=== PATIENT | male | born 1970 | race Caucasian/White ===

== ENCOUNTER 2016-03-26 12:45 | Emergency (ER) | payer OTHER ==
[2016-03-26 12:56] VITALS: BP 103/72
[2016-03-26] MEDS ORDERED: HYDROcodone/ACETAMINOPHEN 1 EACH TABLET PO ONE (13:07)
[2016-03-26] MEDS ORDERED: NORMAL SALINE 1,000 ML IV PRN (13:07)
[2016-03-26] MEDS ORDERED: THIAMINE HCL 100 MG in NORMAL SALINE 50 ML IV ONE (13:07)
[2016-03-26 13:27] LABS: Hematocrit 35.9 % (42.0-52.0); Hemoglobin 12.4 gm/dL (13.5-18.0); Mean Cell Volume 88.2 fl (78-100); Mean Corpuscular Hemoglobin 30.5 pg (27-31); Mean Corpuscular Hgb Conc 34.5 g/dl (32-36); Mean Platelet Volume 9.5 fl (6.0-9.5); Neutrophil # 2.6 K/mm3 (1.3-6.0); Neutrophil % 47.5 % (42-75.0); Platelet Count 182 K/mm3 (150-450); Red Blood Count 4.07 M/mm3 (4.7-6.0); Red Cell Distribution Width 18.1 % (11.5-14.0); White Blood Count 5.5 K/mm3 (4.0-10.5)
[2016-03-26] MEDS ORDERED: PENICILLIN G POTASSIUM 2.5 MILLIONUNT in DEXTROSE 5 % IN WATER 100 ML IV ONE ×2 (13:30)
[2016-03-26 13:43] LABS: BUN/Creatinine Ratio 4.7 (9.0-21.6); Estimated Creat Clear 152.1
[2016-03-26 13:44] LABS: Albumin * 3.5 gm/dl (3.4-5.0); Anion Gap 13.7 mmol/L (6.8-13.8); Bilirubin Direct 0.1 mg/dL (0.0-0.3); Bilirubin, Total 0.2 mg/dL (0.0-1.1); Bilirubin,Indirect 0.1 mg/dL (0.1-0.7); Calcium * 8.3 mg/dL (7.9-10.9); Carbon Dioxide 27.2 mmol/L (24-32.6); Potassium 3.9 mmol/L (3.4-4.6); Total Protein 7.5 gm/dL (6.2-8.2)
--- NOTE | 2016-03-26 15:17 | ERNOTE ---
Abdominal HPI - Narrative Date of Service: 03/26/16 - General Chief Complaint: Fall Time Seen by Provider: 03/26/16 12:50 Source: patient Exam Limitations: clinical condition - Immun/Allergies/Home Medications Immunizatons: IMMUNIZATION HX Immunizations Up to Date No History of Influenza Vaccine No Hx Pneumococcal Vaccination No Allergies/Adverse Reactions: Allergies No Known Allergies Allergy (Verified 03/01/16 09:25) Home Medications: HOME MEDICATIONS NK [No Home Medication] 01/10/16 [Last Taken Unknown] - History of Present Illness Narrative: Chronic alcohol abuse. Brought to the [facility] ER today by EMS. The original story was that he was intoxicated and fell down stairs. It turns out that he simply slumped against a wall. In the ER, he was complaining of RLQ abdominal pain. He was a very poor vague historian. He also complained of right sided posterior dental pain. He agreed to evaluation and treatment in the ER, as he often leaves promptly after arriving here. Timing: unsure Quality: moderate Activities at Onset: other - drinking Associated Symptoms: Present: denies symptoms Prior Abdominal Problems: Present: similar symptoms Review of Systems - Review of Systems Constitutional: Present: malaise EYE: Present: no symptoms reported ENT: Present: other - dental pain Respiratory: Present: no symptoms reported Cardiology: Present: no symptoms reported Gastrointestinal/Abdominal: Present: See HPI Genitourinary: Present: no symptoms reported Musculoskeletal: Present: no symptoms reported Skin: Present: no symptoms reported Neurological: Present: no symptoms reported Endocrine: Present: no symptoms reported Hematologic/Lymphatic: Present: no symptoms reported Psych: Present: no symptoms reported All Other Systems: All systems neg except as marked - Patient's Past Medical History Patient History - Medical: Alcohol Abuse, Migraines, Seizures Patient History - Cardiac/Respiratory: No pertinent hx Patient History - Cancer: No Hx of Cancer Patient History - Surgical Procedures: No surgical history - Family History Brother Family History - Medical: , Alcohol Abuse Mother Family History - Medical: Family History - Cardiac/Respiratory: Aneurysm Father Family History - Medical: No pertinent hx - Social History Living Situations: home Does anyone smoke in the home?: Yes Smoking Status: Current every day smoker Have you smoked in the past 12 months: Yes Do you dip or chew tobacco: No Patient requests Smoking Cessation Consult: No Initiate information on Smoking Cessation: No Alcohol Use: heavy Drug Use: none Physical Exam - Physical Exam General Appearance: Present: lethargic, thin Eye Exam: Normal inspection: bilateral, PERRL: bilateral, EOMI: bilateral Ears, Nose, Throat: Present: normal ENT inspection, hearing grossly normal, other - carious teeth, especially right posterior Neck: Present: normal inspection Respiratory: Present: no respiratory distress, lungs clear, decreased breath sounds Cardiovascular/Chest: Present: regular rate, rhythm, no murmur Gastrointestinal/Abdominal: Present: normal bowel sounds, nondistended, soft, no organomegaly, tenderness - RLQ Back Exam: Present: normal inspection Extremity Exam: Present: normal inspection, no edema Neurological Exam: Present: disoriented to time. Absent: normal mood/affect Skin Exam: Present: normal color, warm/dry ED Progress - Results and Orders Patient's Lab Results:: I have reviewed the patient's lab results. - Vital Signs Patient's Vital Signs:: I have reviewed the patient's vital signs. Vital Signs: Vital Signs 03/26/16 03/26/16 03/26/16 12:47 12:56 12:57 Temperature 34.6 C L 34.6 C L Pulse Rate 76 75 74 Respiratory 15 17 Rate Blood Pressure 103/72 103/72 O2 Sat by Pulse 97 Oximetry - Progress/Reassessment Chief Complaint: Fall Progress:: Improved Progress Note-Subjective: 03/26/16 15:15 After beginning evaluation, and intiating some treatment, the patient decided he would not stay here any longer, and vigorously signed out against medical advice. Departure - Departure Clinical Impression: Alcohol abuse, Dental caries into pulp, RLQ abdominal pain, Non-compliance with treatment Alcohol intoxication Qualifiers: Complication of substance-induced condition: uncomplicated Qualified Code(s): F10.120 - Alcohol abuse with intoxication, uncomplicated Disposition: Against medical advice Condition: Undetermined Referrals: NONE,NONE [Primary Care Provider] -
== END 2016-03-26 15:09 | disposition left against medical advice (07) ==
LOC: ER 12:45
DX: R10.31 Right lower quadrant pain (principal); K02.9 Dental caries, unspecified; Z91.19 Patient's noncompliance with other medical treatment and regimen; F10.129 Alcohol abuse with intoxication, unspecified; F17.210 Nicotine dependence, cigarettes, uncomplicated
CPT/HCPCS: 36415; 80048; 80076; 82140; 82150; 83690; 85025; 87040; 99283; G0481

== ENCOUNTER 2016-06-20 15:13 | Emergency (ER) | payer OTHER ==
[2016-06-20] MEDS ORDERED: LORazepam 2 MG/ML DISP.SYRIN IV ONE (15:24)
[2016-06-20] MEDS ORDERED: LORazepam 2 MG/ML DISP.SYRIN ONE (15:29)
--- NOTE | 2016-06-20 15:39 | ERNOTE ---
Neuro HPI ER Record Date of Service: 06/20/16 Time Seen by Provider: 06/20/16 15:15 Immunizations: IMMUNIZATION HX Immunizations Up to Date Yes History of Influenza Vaccine No Hx Pneumococcal Vaccination No Allergies/Adverse Reactions: Allergies Allergy/AdvReac Type Severity Reaction Status Date / Time No Known Allergies Allergy Verified 06/20/16 15:20 Home Medications: HOME MEDICATIONS NK [No Home Medication] 01/10/16 [Last Taken Unknown] - History of Present Illness Narrative: Pt. comes in by EMS with c/o R side pain, B leg pain, and multiple seizures from last night and this morning in which she fell to the ground and hit his head. Pt. denies any headache, neck pain, head injury, SOB, CP, fever, NVD, abdominal pain, but pt. does state that his R lateral ribs were injured during his fall but he is unsure of how as he does not remember incident. Pt. does state that he had his last etoh just prior to the EMS arriving. Pt. is intoxicated at this time. Review of Systems - Review of Systems Constitutional: Present: no symptoms reported. Absent: recent illness, fever, chills, weakness, fatigue, malaise EYE: Present: no symptoms reported ENT: Present: no symptoms reported Respiratory: Present: no symptoms reported. Absent: shortness of breath, cough , wheezing Cardiology: Present: no symptoms reported. Absent: chest pain, edema Gastrointestinal/Abdominal: Present: no symptoms reported. Absent: nausea, vomiting, diarrhea Genitourinary: Present: no symptoms reported Musculoskeletal: Present: muscle pain - R lateral ribs. Absent: back pain, neck pain, joint pain Skin: Present: no symptoms reported. Absent: rash, change in color Neurological: Present: anxiety, seizure. Absent: depressed, headache, dizziness /light-headedness, weakness, numbness, tingling Psych: Present: anxiety All Other Systems: All systems neg except as marked - Patient's Past Medical History Patient History - Medical: Alcohol Abuse, Migraines, Seizures Patient History - Cardiac/Respiratory: No pertinent hx Patient History - Cancer: No Hx of Cancer Patient History - Surgical Procedures: No surgical history Patient History - Other: None - Family History Brother Family History - Medical: , Alcohol Abuse Mother Family History - Medical: Family History - Cardiac/Respiratory: Aneurysm Father Family History - Medical: No pertinent hx - Social History Living Situations: home Abuse History: No History of abuse Psych History: No pertinent hx Does anyone smoke in the home?: Yes Smoking Status: Current every day smoker Have you smoked in the past 12 months: Yes Alcohol Use: heavy Drug Use: none - Immunizations Immunizations Up to Date: Yes Hx Pneumococcal Vaccination: No History of Influenza Vaccine: No Physical Exam - Physical Exam General Appearance: Present: wd/wn, alert, no apparent distress Eye Exam: Normal inspection: bilateral, PERRL: bilateral, EOMI: bilateral Ears, Nose, Throat: Present: normal ENT inspection, normal pharynx Neck: Present: normal inspection, nontender. Absent: lymphadenopathy (R), lymphadenopathy (L) Respiratory: Present: no respiratory distress, normal breath sounds, no accessory muscle use, lungs clear, chest tenderness - R lateral rib tenderness. Absent: crackles, rales, rhonchi, stridor, wheezing Cardiovascular/Chest: Present: regular rate, rhythm, no murmur, normal peripheral pulses Gastrointestinal/Abdominal: Present: normal bowel sounds, nontender, nondistended, soft, no organomegaly Back Exam: Present: normal inspection, normal range of motion, no CVA tenderness , no vertebral tenderness Extremity Exam: Present: normal inspection, non-tender, normal range of motion, no edema Neurological Exam: Present: alert, oriented, normal mood/affect, no motor/ sensory deficits Skin Exam: Present: normal color, warm/dry. Absent: pallor, skin rash [place] Coma Scale - Assess Eye Opening: Spontaneous Motor: Obeys Commands Verbal: Oriented - Total Coma Scale Total: 15 Initial Stroke Assessment - Date/Time of assessment Stroke Scale Date: 06/20/16 Stroke Scale Time: 15:37 - NIH Stroke Scale Level of Consciousness: Alert LOC Questions (Year and Age): Answers both correctly LOC Commands (open/close eyes/fist): Performs both correctly Lateral Gaze Paresis: None Visual Field Loss: No visual loss Facial Palsy: Normal movement Right Arm Motor (10 sec hold): No drift Left Arm Motor (10 sec hold): No drift Right Leg Motor (5 sec hold): No drift Left Leg Motor (5 sec hold): No drift Limb Ataxia (finger/nose heel/morse): Untestable If present, ataxia in:: Right arm, Left arm, Right leg, Left leg Sensory Loss (pinprick arms/legs/face): No sensory loss Language Aphasia (description/naming/reading): No aphasia; normal Dysarthria (speech clarity): Slurring, intelligeble Neglect Inattention (visual/tactile/auditory/spatial/person): No neglect Initial Stroke Scale Score:: 1 ED Progress - Date and Time Seen: Date and Time: 06/20/16 17:07 Pt. is clearly intoxicated and unable to go home at this time. Pt. is prescribed medications for seizures but is unwilling to take them per pt. Discussed with Dr Martinez and she feels that it is safe to send pt. home when he is able to walk and care for himself. 06/20/16 19:49 Pt. left the ER when this provider was in another pt. room. Pt. still has heplock in place. bonding supervisor noted, will call [facility] to find pt. - Results and Orders Patient's Lab Results:: I have reviewed the patient's lab results. - Vital Signs Patient's Vital Signs:: I have reviewed the patient's vital signs. Vital Signs: Vital Signs 06/20/16 15:13 Temperature 37.0 C Pulse Rate 92 Respiratory 16 Rate Blood Pressure 133/88 O2 Sat by Pulse 97 Oximetry - X-Ray X-Ray #1 X-Ray: ribs Interpretation: Reviewed by me X-ray Comments: no acute - CT/Ultrasound CT/Ultrasound Narrative: CT head without any acute intracranial process. - Progress/Reassessment Chief Complaint: Seizure Activity Departure Clinical Impression: Alcohol abuse - Departure Disposition: Against medical advice
[2016-06-20 15:42] LABS: Hematocrit 38.4 % (42.0-52.0); Hemoglobin 13.7 gm/dL (13.5-18.0); Mean Cell Volume 86.1 fl (78-100); Mean Corpuscular Hemoglobin 30.7 pg (27-31); Mean Corpuscular Hgb Conc 35.7 g/dl (32-36); Mean Platelet Volume 9.6 fl (6.0-9.5); Neutrophil # 5.3 K/mm3 (1.3-6.0); Neutrophil % 54.6 % (42-75.0); Platelet Count 214 K/mm3 (150-450); Red Blood Count 4.46 M/mm3 (4.7-6.0); Red Cell Distribution Width 15.9 % (11.5-14.0); White Blood Count 9.7 K/mm3 (4.0-10.5)
--- OUTSIDE RECORDS SUMMARY | 2016-06-20 15:50 | XMS REPORT | Continuity of Care Document ---
:1970 Author Organization [employer] [place] [address] Care Team Providers Name Role Phone Unavailable Primary Care Provider Unavailable Source Comments This disclosure is being made pursuant to the [employer] program and maynot contain all information available regarding this patient.[employer] Active Allergies and Adverse Reactions Not on File Current Medications Be aware that medications may not be up to date as of this document. Alwaysverify current medications with the patient. Not on file Active Problems Not on file Social History Tobacco Use Types Packs/Day Years Used Date Never Assessed Plan of Care Health Maintenance Due Date Last Done Comments Retired-Pertussis Vaccine Adult 06/11/1990 Retired-Tetanus Vaccine Adult 06/11/1990 Retired-INFLUENZA VACCINE 11/03/2014 Results from Last 3 Months Not on file
[2016-06-20 16:01] LABS: Albumin * 4.1 gm/dl (3.4-5.0); BUN/Creatinine Ratio 9.1 (9.0-21.6); Bilirubin, Total 0.2 mg/dL (0.0-1.1); Ca. Corrected For Albumin 8.5 mg/dL (8.4-10.2); Calcium * 8.9 mg/dL (7.9-10.9); Carbon Dioxide 25.9 mmol/L (24-32.6); Potassium 3.9 mmol/L (3.4-4.6); Total Protein 8.7 gm/dL (6.2-8.2)
[2016-06-20] MEDS ORDERED: MULTIVIT INFUSN,ADULT 4,VIT K 10 ML, THIAMINE HCL 100 MG in NORMAL SALINE 1,000 ML IV SCH (16:30)
[2016-06-20 22:25] VITALS: BP 111/77
== END 2016-06-20 20:00 | disposition left against medical advice (07) ==
LOC: ER 15:13
DX: F10.129 Alcohol abuse with intoxication, unspecified (principal); R07.81 Pleurodynia; M79.605 Pain in left leg; M79.604 Pain in right leg; S09.90XA Unspecified injury of head, initial encounter; F17.200 Nicotine dependence, unspecified, uncomplicated; W19.XXXA Unspecified fall, initial encounter
CPT/HCPCS: 36415; 70450; 71100; 80053; 85025; 96374; 96375; 99284; G0481

== ENCOUNTER 2016-07-17 12:54 | Emergency (ER) | payer OTHER ==
--- NOTE | 2016-07-17 13:53 | ERNOTE ---
ENT HPI Date of Service: 07/17/16 Time Seen by Provider: 07/17/16 13:52 Source: patient Exam Limitations: no limitations - Immun/Allergies/Home Medications Immunizations: IMMUNIZATION HX Immunizations Up to Date Yes History of Influenza Vaccine No Hx Pneumococcal Vaccination No Allergies/Adverse Reactions: Allergies Allergy/AdvReac Type Severity Reaction Status Date / Time No Known Allergies Allergy Verified 07/17/16 13:27 Home Medications: HOME MEDICATIONS Meloxicam [Mobic] 15 mg PO DAILY #30 tab 07/17/16 [Last Taken Unknown] Penicillin V Potassium [Pen-Vee K] 500 mg PO QID #40 tab 07/17/16 [Last Taken Unknown] - History of Present Illness Narrative: C/O OF RIGHT UPPER AND LOWER TOOTH PAIN AFTER BITING ON [employer]. NO FACIAL SWELLING AT PRESENT. HE STATES HE HAS NO DENTIST. NKA. HE STATES HIS SISTER TOLD HIM HE COULD COME HERE AND GET SOME TRAMADOL. Review of Systems - Review of Systems Constitutional: Present: See HPI ENT: Present: See HPI, other - DENTAL PAIN . All Other Systems: All systems neg except as marked - Patient's Past Medical History Patient History - Medical: Alcohol Abuse, Migraines, Seizures Patient History - Cardiac/Respiratory: No pertinent hx Patient History - Cancer: No Hx of Cancer Patient History - Surgical Procedures: No surgical history Patient History - Other: None - Family History Brother Family History - Medical: , Alcohol Abuse Mother Family History - Medical: Family History - Cardiac/Respiratory: Aneurysm Father Family History - Medical: No pertinent hx - Social History Living Situations: home Abuse History: No History of abuse Psych History: No pertinent hx Does anyone smoke in the home?: Yes Alcohol Use: heavy Drug Use: none - Immunizations Immunizations Up to Date: Yes Hx Pneumococcal Vaccination: No History of Influenza Vaccine: No Physical Exam - Physical Exam General Appearance: Present: wd/wn, alert, no apparent distress Ears, Nose, Throat: Present: normal except -, other - C/O OF UPPER AND LOWER, RIGHT TOOTH PAIN WITH NO SIGN OF ACUTE SWELLING OR FRACTURE THOUGH HE HAS SIGN OF MULTIPLE CHRONIC CARIES ON RIGHT AND LEFT , UPPER AND LOWER WITH VERY CARIOUS RIGHT LOWER 3RD MOLAR THAT IS NOT A SOURCE OF HIS COMPLAINT. THERE IS NO JAW OR SOFT TISSUE FACIAL SWELLING. Neck: Present: normal inspection, nontender ED Progress - Vital Signs Patient's Vital Signs:: I have reviewed the patient's vital signs. Vital Signs: Vital Signs 07/17/16 13:23 Temperature 36.9 C Pulse Rate 115 H Respiratory 12 Rate Blood Pressure 136/87 O2 Sat by Pulse 95 Oximetry - Progress/Reassessment Chief Complaint: Dental Problem Departure Clinical Impression: Pain due to dental caries - Departure Disposition: Home Follow Up Needed Condition: Good Instructions: Dental Caries Additional Instructions: You need to follow up with the dental clinic for definitive treatment of your dental problems. . We have given you information about the walk in dental clinic . Contact them today . In the meantime I have started you on penicillin and meloxicam. Avoid food and drink that is hot and cold. Rinse your mouth with warm salt water for 10 mins every 3-4 hours. You can also try topical ambusol or oil of cloves. Referrals: NONE,NONE [Primary Care Provider] - Prescriptions: Meloxicam [Mobic] 15 mg PO DAILY #30 tab Penicillin V Potassium [Pen-Vee K] 500 mg PO QID #40 tab
--- OUTSIDE RECORDS SUMMARY | 2016-07-17 14:24 | XMS REPORT | Continuity of Care Document ---
:1970 Author Organization [employer] [place] [address] Care Team Providers Name Role Phone Unavailable Primary Care Provider Unavailable Source Comments This disclosure is being made pursuant to the [employer] program and maynot contain all information available regarding this patient.[employer] Active Allergies and Adverse Reactions Not on [...]
[2016-07-17 14:25] VITALS: BP 134/83
== END 2016-07-17 14:17 | disposition home or self-care (01) ==
LOC: ER 12:54
DX: K02.9 Dental caries, unspecified (principal)

== ENCOUNTER 2016-08-07 17:34 | Emergency (ER) | payer OTHER ==
[2016-08-07 17:54] LABS: Hematocrit 36.1 % (42.0-52.0); Mean Cell Volume 85.3 fl (78-100); Mean Corpuscular Hemoglobin 30.7 pg (27-31); Mean Platelet Volume 9.1 fl (6.0-9.5); Neutrophil # 3.3 K/mm3 (1.3-6.0); Neutrophil % 46.3 % (42-75.0); Platelet Count 278 K/mm3 (150-450); Red Blood Count 4.23 M/mm3 (4.7-6.0); Red Cell Distribution Width 17.1 % (11.5-14.0); White Blood Count 7.1 K/mm3 (4.0-10.5)
[2016-08-07] MEDS ORDERED: MULTIVIT INFUSN,ADULT 4,VIT K 10 ML, THIAMINE HCL 100 MG in DEXTROSE 5 % IN WATER 1,000 ML IV SCH ×3 (18:00)
[2016-08-07 18:10] LABS: Albumin * 3.9 gm/dl (3.4-5.0); BUN/Creatinine Ratio 10.4 (9.0-21.6); Bilirubin, Total 0.2 mg/dL (0.0-1.1); Ca. Corrected For Albumin 8.9 mg/dL (8.4-10.2); Calcium * 9.1 mg/dL (7.9-10.9); Total Protein 7.9 gm/dL (6.2-8.2)
--- OUTSIDE RECORDS SUMMARY | 2016-08-07 18:12 | XMS REPORT | Continuity of Care Document ---
:1970 Author Organization [employer] [place] [address] Care Team Providers Name Role Phone Unavailable Primary Care Provider Unavailable Source Comments This disclosure is being made pursuant to the [employer] program and maynot contain all information available regarding this patient.[employer] Active Allergies and Adverse Reactions Not on [...]
[2016-08-07 18:29] LABS: Urine Bilirubin Negative (NEGATIVE); Urine Blood Negative /ul (NEGATIVE); Urine Ketone Negative (NEGATIVE); Urine Nitrite Negative (NEGATIVE); Urine Protein Negative (NEGATIVE); Urine Specific Gravity <=1.005 SP.GR. (1.005-1.030); Urine Urobilinogen Normal (NORMAL)
--- NOTE | 2016-08-07 18:30 | ERNOTE ---
Abdominal HPI - General Chief Complaint: Abdominal Pain Time Seen by Provider: 08/07/16 17:59 Source: patient Exam Limitations: no limitations - Immun/Allergies/Home Medications Immunizatons: IMMUNIZATION HX Immunizations Up to Date Yes History of Influenza Vaccine No Hx Pneumococcal Vaccination No Allergies/Adverse Reactions: Allergies tramadol Adverse Reaction (Mild, Verified 08/07/16 17:39) Vomiting Home Medications: HOME MEDICATIONS NK [No Home Medication] 08/07/16 [Last Taken Unknown] - History of Present Illness Narrative: pt is a known alcoholic who comes in for right upper quadrant abd pain for 24 hours. He states that self medicating with alcohol has not helped Review of Systems - Review of Systems Constitutional: Present: no symptoms reported EYE: Present: no symptoms reported ENT: Present: no symptoms reported Respiratory: Present: no symptoms reported Cardiology: Present: no symptoms reported Gastrointestinal/Abdominal: Present: See HPI Genitourinary: Present: no symptoms reported Musculoskeletal: Present: no symptoms reported Skin: Present: no symptoms reported - Patient's Past Medical History Patient History - Medical: Alcohol Abuse, Migraines, Seizures Patient History - Cardiac/Respiratory: No pertinent hx Patient History - Cancer: No Hx of Cancer Patient History - Surgical Procedures: Other Patient History - Other: None - Family History Brother Family History - Medical: , Alcohol Abuse Mother Family History - Medical: Family History - Cardiac/Respiratory: Aneurysm Father Family History - Medical: No pertinent hx - Social History Living Situations: home Abuse History: No History of abuse Psych History: No pertinent hx Does anyone smoke in the home?: Yes Smoking Status: Current every day smoker Have you smoked in the past 12 months: Yes Alcohol Use: heavy Drug Use: none - Immunizations Immunizations Up to Date: Yes Hx Pneumococcal Vaccination: No History of Influenza Vaccine: No Physical Exam - Physical Exam General Appearance: Present: wd/wn, alert, no apparent distress Eye Exam: Other: right - pt does have mild scleral icterus bilaterally Ears, Nose, Throat: Present: normal ENT inspection Respiratory: Present: no respiratory distress, normal breath sounds, no accessory muscle use, chest nontender, lungs clear Cardiovascular/Chest: Present: regular rate, rhythm, no murmur, normal peripheral pulses Gastrointestinal/Abdominal: Present: other - patient's examination of the abdomen reveals tenderness in the right upper quadrant of the abdomen he is thin I do not feel any masses there is no rebound examination does not reveal this belly to be an acute abdomen ED Progress - Vital Signs Vital Signs: Vital Signs 08/07/16 08/07/16 08/07/16 17:35 17:58 18:20 Temperature 36.9 C 36.8 C Pulse Rate 91 93 78 Respiratory 14 14 14 Rate Blood Pressure 122/83 118/79 121/79 O2 Sat by Pulse 93 95 94 Oximetry - Progress/Reassessment Chief Complaint: Abdominal Pain Plan - Plan Plan: Patient has acute alcoholic intoxication his blood alcohol level is 385. His pain is most probably hepatic as he had elevation of the liver enzymes. Like to give the patient a banana bag and proceed with getting an ultrasound of the bladder. However the patient signed out AGAINST MEDICAL ADVICE. Departure - Departure Clinical Impression: Alcohol intoxication Qualifiers: Complication of substance-induced condition: with unspecified complication Qualified Code(s): F10.929 - Alcohol use, unspecified with intoxication, unspecified Disposition: Against medical advice Condition: Undetermined
[2016-08-07 18:37] LABS: Urine Appearance Clear; Urine Bacteria TRACE; Urine Color Yellow; Urine RBC None Seen /hpf (0-5); Urine WBC None Seen /hpf (0-5)
[2016-08-07 18:44] LABS: Cocaine Ur Negative (NEGATIVE); Urine Barbiturate Negative (NEGATIVE); Urine Benzodiazepines Negative (NEGATIVE); Urine Opiates Negative (NEGATIVE); Urine PCP Negative (NEGATIVE); Urine THC Negative (NEGATIVE)
[2016-08-07 19:46] VITALS: BP 128/78
== END 2016-08-07 19:27 | disposition left against medical advice (07) ==
LOC: ER 17:34
DX: F10.929 Alcohol use, unspecified with intoxication, unspecified (principal); Z72.0 Tobacco use; Z53.29 Procedure and treatment not carried out because of patient's decision for other reasons
CPT/HCPCS: 36415; 80053; 80307; 81001; 82140; 82150; 83690; 85025; 96365; 99284; G0481

== ENCOUNTER 2016-09-13 15:05 | Emergency (ER) | payer OTHER ==
--- NOTE | 2016-09-13 15:35 | ERNOTE ---
Abdominal HPI - General Chief Complaint: Abdominal Pain Time Seen by Provider: 09/13/16 15:26 Source: patient Exam Limitations: intoxication - Immun/Allergies/Home Medications Immunizatons: IMMUNIZATION HX Immunizations Up to Date No History of Influenza Vaccine No Hx Pneumococcal Vaccination No Allergies/Adverse Reactions: Allergies tramadol Adverse Reaction (Mild, Verified 09/13/16 15:12) Vomiting Home Medications: HOME MEDICATIONS NK [No Home Medication] 09/13/16 [Last Taken Unknown] - History of Present Illness Narrative: Patient is here for abdominal pain that he has had for a few months. He was seen at [facility] at some point and had an ultrasound that showed gallstones. It is unclear why he did not follow up. He was seen in the Er again a couple of weeks ago for abdominal pain, was told to follow up but 'they did not answer the phone ' He has a history of ETOH abuse, states that he slowed down for a few months, but has been drinking more recently again 'as it helps the pain', can't tell how much he has been drinking or when the pain started today. Review of Systems - Review of Systems Constitutional: Absent: recent illness, fever Respiratory: Absent: shortness of breath Cardiology: Absent: chest pain Gastrointestinal/Abdominal: Present: See HPI. Absent: nausea, vomiting, diarrhea Genitourinary: Present: no symptoms reported Skin: Absent: rash Neurological: Absent: headache - Patient's Past Medical History Patient History - Medical: Alcohol Abuse, Migraines, Seizures Patient History - Cardiac/Respiratory: No pertinent hx Patient History - Cancer: No Hx of Cancer Patient History - Surgical Procedures: Other Patient History - Other: None - Family History Brother Family History - Medical: , Alcohol Abuse Mother Family History - Medical: Family History - Cardiac/Respiratory: Aneurysm Father Family History - Medical: No pertinent hx - Social History Living Situations: home Abuse History: No History of abuse Psych History: No pertinent hx Does anyone smoke in the home?: Yes Smoking Status: Current every day smoker Alcohol Use: heavy Drug Use: none - Immunizations Immunizations Up to Date: No Hx Pneumococcal Vaccination: No History of Influenza Vaccine: No Physical Exam - Physical Exam General Appearance: Present: wd/wn, alert, no apparent distress, other - intoxicated but alert and oriented Respiratory: Present: no respiratory distress, no accessory muscle use, lungs clear, decreased breath sounds Cardiovascular/Chest: Present: regular rate, rhythm, no murmur Gastrointestinal/Abdominal: Present: normal bowel sounds, nondistended, soft, tenderness - RUQ. Absent: guarding, rebound Neurological Exam: Present: alert, oriented Skin Exam: Present: normal color, warm/dry ED Progress - Results and Orders Patient's Lab Results:: I have reviewed the patient's lab results. - Vital Signs Patient's Vital Signs:: I have reviewed the patient's vital signs. Vital Signs: Vital Signs 09/13/16 15:06 Temperature 36.5 C Pulse Rate 90 Respiratory 18 Rate Blood Pressure 109/75 O2 Sat by Pulse 97 Oximetry - CT/Ultrasound CT/Ultrasound Narrative: abdominal u/s: no acute cholecystitis - Progress/Reassessment Chief Complaint: Abdominal Pain Progress Note-Subjective: 09/13/16 17:26 discussed results of ultrasound and need to follow up, has appointment on December 06, discussed that most pain medication are contraindicated as long as he is drinking alcohol Departure - Departure Clinical Impression: Alcohol abuse Abdominal pain Qualifiers: Abdominal location: right upper quadrant Qualified Code(s): R10.11 - Right upper quadrant pain Disposition: Home self-care Condition: Good Instructions: Abdominal Pain, Adult, [id number] Additional Instructions: call back during business hours and our director of casework services might be able to get you an earlier follow up appointment than December Referrals: Giovanny Becker DO [Staff Physician] -
--- OUTSIDE RECORDS SUMMARY | 2016-09-13 15:37 | XMS REPORT | Continuity of Care Document ---
:1970 Author Organization [employer] [place] [address] Care Team Providers Name Role Phone Unavailable Primary Care Provider Unavailable Source Comments This disclosure is being made pursuant to the [employer] program and maynot contain all information available regarding this patient.[employer] Active Allergies and Adverse Reactions Not on [...]
[2016-09-13 15:47] LABS: Hematocrit 33.3 % (42.0-52.0); Hemoglobin 11.5 gm/dL (13.5-18.0); Mean Corpuscular Hemoglobin 30.7 pg (27-31); Mean Corpuscular Hgb Conc 34.5 g/dl (32-36); Mean Platelet Volume 9.9 fl (6.0-9.5); Neutrophil # 5.5 K/mm3 (1.3-6.0); Neutrophil % 66.1 % (42-75.0); Platelet Count 232 K/mm3 (150-450); Red Blood Count 3.74 M/mm3 (4.7-6.0); Red Cell Distribution Width 16.7 % (11.5-14.0); White Blood Count 8.3 K/mm3 (4.0-10.5)
[2016-09-13 15:59] LABS: Albumin * 3.6 gm/dl (3.4-5.0); Anion Gap 12.7 mmol/L (6.8-13.8); BUN/Creatinine Ratio 4.3 (9.0-21.6); Bilirubin, Total 0.2 mg/dL (0.0-1.1); Ca. Corrected For Albumin 8.5 mg/dL (8.4-10.2); Calcium * 8.5 mg/dL (7.9-10.9); Carbon Dioxide 25.7 mmol/L (24-32.6); Potassium 3.4 mmol/L (3.4-4.6); Total Protein 7.5 gm/dL (6.2-8.2)
[2016-09-13 17:53] VITALS: BP 116/84
== END 2016-09-13 17:53 | disposition home or self-care (01) ==
LOC: ER 15:05
DX: F10.10 Alcohol abuse, uncomplicated (principal); R10.11 Right upper quadrant pain; F17.200 Nicotine dependence, unspecified, uncomplicated

== ENCOUNTER 2016-10-30 18:50 | Emergency (ER) | payer OTHER ==
[2016-10-30] MEDS ORDERED: NORMAL SALINE 1,000 ML IV ONE (19:14)
[2016-10-30] MEDS ORDERED: PROMETHAZINE HCL 25 MG in DEXTROSE 5 % IN WATER 50 ML IV ONE ×2 (19:14)
[2016-10-30 19:30] LABS: Hematocrit 42.7 % (42.0-52.0); Hemoglobin 14.5 gm/dL (13.5-18.0); Mean Cell Volume 89.5 fl (78-100); Mean Corpuscular Hemoglobin 30.4 pg (27-31); Mean Platelet Volume 9.9 fl (6.0-9.5); Neutrophil # 1.5 K/mm3 (1.3-6.0); Neutrophil % 31.1 % (42-75.0); Platelet Count 210 K/mm3 (150-450); Red Blood Count 4.77 M/mm3 (4.7-6.0); Red Cell Distribution Width 18.1 % (11.5-14.0); White Blood Count 4.7 K/mm3 (4.0-10.5)
--- NOTE | 2016-10-30 19:40 | ERNOTE ---
GI Bleeding/Rectal Pain ER Date of Service: 10/30/16 Presenting Symptoms: vomiting blood Time Seen by Provider: 10/30/16 19:10 Source: patient Exam Limitations: no limitations Immunizations: IMMUNIZATION HX Immunizations Up to Date No History of Influenza Vaccine No Hx Pneumococcal Vaccination No Allergies/Adverse Reactions: Allergies tramadol Adverse Reaction (Mild, Verified 10/30/16 18:54) Vomiting Home Medications: HOME MEDICATIONS Omeprazole [Prilosec] 20 mg PO DAILY #30 cap 10/30/16 [Last Taken Unknown] Narrative: Pt. comes in with c/o vomiting blood three times today starting at unknown time. Pt. states that he has been drinking ETOH today so he is unsure of when it started and that it is purple in color. Pt. denies any SOB, CP, diarrhea or bloody stools. Pt. states that he has been dizzy and nauseated but the beer alleviated that. Review of Systems - Review of Systems Constitutional: Present: weakness, fatigue. Absent: recent illness, fever, chills EYE: Present: no symptoms reported ENT: Present: no symptoms reported Respiratory: Present: no symptoms reported. Absent: shortness of breath, cough , wheezing Cardiology: Present: no symptoms reported. Absent: chest pain, palpitations, edema Gastrointestinal/Abdominal: Present: nausea, vomiting, abdominal pain. Absent: diarrhea Genitourinary: Present: no symptoms reported. Absent: frequency, decreased urinary output Musculoskeletal: Present: no symptoms reported. Absent: back pain, joint pain Skin: Present: no symptoms reported Neurological: Present: dizziness/light-headedness. Absent: weakness, numbness, tingling All Other Systems: All systems neg except as marked - Patient's Past Medical History Patient History - Medical: Alcohol Abuse, Migraines, Seizures Patient History - Cardiac/Respiratory: No pertinent hx Patient History - Cancer: No Hx of Cancer Patient History - Surgical Procedures: Other Patient History - Other: None - Family History Brother Family History - Medical: , Alcohol Abuse Mother Family History - Medical: Family History - Cardiac/Respiratory: Aneurysm Father Family History - Medical: No pertinent hx - Social History Living Situations: home Abuse History: Hx of Substance Use Psych History: No pertinent hx Does anyone smoke in the home?: Yes Smoking Status: Current every day smoker Have you smoked in the past 12 months: Yes Do you dip or chew tobacco: No Patient requests Smoking Cessation Consult: No Initiate information on Smoking Cessation: No Alcohol Use: heavy Drug Use: none - Immunizations Immunizations Up to Date: No Hx Pneumococcal Vaccination: No History of Influenza Vaccine: No Physical Exam - Physical Exam General Appearance: Present: alert, no apparent distress, cachetic Head Exam: Present: normal inspection, no evidence of injury Eye Exam: Normal inspection: bilateral, EOMI: bilateral, Abnormal pupil: bilateral - sluggish, Sclera injection: bilateral, Scleral icterus: bilateral Ears, Nose, Throat: Present: normal ENT inspection, normal pharynx Neck: Present: normal inspection, nontender. Absent: lymphadenopathy (R), lymphadenopathy (L) Respiratory: Present: no respiratory distress, normal breath sounds, no accessory muscle use, chest nontender, lungs clear Cardiovascular/Chest: Present: regular rate, rhythm, no murmur, normal peripheral pulses Gastrointestinal/Abdominal: Present: normal bowel sounds, nondistended, tenderness - LUQ , other - flat. Absent: rebound, Byrd sign, Psoas sign, mass , hernia Back Exam: Present: normal inspection, normal range of motion, no CVA tenderness , no vertebral tenderness Extremity Exam: Present: normal inspection, non-tender, normal range of motion, no edema Neurological Exam: Present: alert, oriented, normal mood/affect, no motor/ sensory deficits, other - enebriated Skin Exam: Present: cool/dry, jaundice ED Progress - Date and Time Seen: Date and Time: 10/30/16 21:22 Pt. refusing stool sample and rectal exam as pt. is not vomiting here and is not anemic and his pain decreased with GI cocktail feels that pt. needs PPI for likely peptic ulcer secondary to ETOH abuse. - Results and Orders Patient's Lab Results:: I have reviewed the patient's lab results. - Vital Signs Patient's Vital Signs:: I have reviewed the patient's vital signs. Vital Signs: Vital Signs 10/30/16 18:54 Temperature 36.0 C L Pulse Rate 107 H Respiratory 20 Rate Blood Pressure 115/88 O2 Sat by Pulse 99 Oximetry - X-Ray X-Ray #1 X-Ray: abdomen Interpretation: Reviewed by me X-ray Comments: non obstructive bowel gas pattern prominent rugal folds in abdomen - Progress/Reassessment Chief Complaint: GI Bleed Departure Clinical Impression: Alcohol abuse Gastritis Qualifiers: Gastritis type: alcoholic Chronicity: acute Gastritis bleeding: with bleeding Qualified Code(s): K29.21 - Alcoholic gastritis with bleeding - Departure Disposition: Home self-care Condition: Good Instructions: Gastritis, Adult, [id number] Additional Instructions: Please follow up with primary provider and return to ER if you vomit any more Prescriptions: Omeprazole [Prilosec] 20 mg PO DAILY #30 cap
[2016-10-30 19:41] LABS: Prothrombin Time (Patient) 9.2 Seconds (9.4-11.4)
[2016-10-30 19:46] LABS: Albumin * 4.3 gm/dl (3.4-5.0); Anion Gap 17.6 mmol/L (6.8-13.8); BUN/Creatinine Ratio 7.7 (9.0-21.6); Bilirubin, Total 0.1 mg/dL (0.0-1.1); Ca. Corrected For Albumin 8.6 mg/dL (8.4-10.2); Calcium * 9.2 mg/dL (7.9-10.9); Carbon Dioxide 23.8 mmol/L (24-32.6); Potassium 4.4 mmol/L (3.4-4.6); Total Protein 9.2 gm/dL (6.2-8.2)
[2016-10-30 19:53] LABS: INR 0.88 INR (0.90-1.10); Partial Thrombolplastin Time 22.9 Seconds (24-32)
[2016-10-30] MEDS ORDERED: LIDOCAINE HCL 20 ML UDC PO ONE (20:27)
[2016-10-30] MEDS ORDERED: SUCRALFATE 1 G/10 ML UDC PO ONE (20:27)
[2016-10-30] MEDS ORDERED: MAG HYDROX/ALUMINUM HYD/SIMETH 30 ML UDC PO ONE (20:27)
[2016-10-30 20:28] LABS: Urine Bilirubin Negative (NEGATIVE); Urine Blood Negative /ul (NEGATIVE); Urine Ketone Negative (NEGATIVE); Urine Nitrite Negative (NEGATIVE); Urine Protein Negative (NEGATIVE); Urine Urobilinogen Normal (NORMAL); Urine pH 5.5 pH (5.0-7.0)
[2016-10-30 20:49] LABS: Urine Color Yellow
[2016-10-30 20:50] LABS: Urine Appearance Clear; Urine Bacteria 1+; Urine RBC None Seen /hpf (0-5); Urine WBC None Seen /hpf (0-5)
[2016-10-30 21:06] VITALS: BP 101/72
== END 2016-10-30 21:30 | disposition home or self-care (01) ==
LOC: ER 18:50
DX: K29.91 Gastroduodenitis, unspecified, with bleeding (principal); F10.10 Alcohol abuse, uncomplicated; F17.200 Nicotine dependence, unspecified, uncomplicated
CPT/HCPCS: 36415; 74020; 80053; 81001; 85025; 85610; 85730; 86850; 86900; 96365; 99284; G0481

== ENCOUNTER 2016-12-26 18:58 | Emergency (ER) | payer OTHER ==
[2016-12-26 19:05] VITALS: BP 128/86
[2016-12-26] MEDS ORDERED: DICYCLOMINE HCL 10 MG/ML AMPUL IM ONE ×2 (19:15→19:27)
--- NOTE | 2016-12-26 19:26 | ERNOTE ---
Abdominal HPI - Narrative Date of Service: 12/26/16 - General Chief Complaint: Abdominal Pain Time Seen by Provider: 12/26/16 19:08 Source: patient Exam Limitations: no limitations - Immun/Allergies/Home Medications Immunizatons: IMMUNIZATION HX Immunizations Up to Date Yes History of Influenza Vaccine No Hx Pneumococcal Vaccination No Allergies/Adverse Reactions: Allergies tramadol Adverse Reaction (Mild, Verified 12/26/16 19:05) Vomiting Home Medications: HOME MEDICATIONS NK [No Home Medication] 12/26/16 [Last Taken Unknown] - History of Present Illness Narrative: Pt. comes in with c/o RUQ pain intermittently for months. Pt. has a hx of chronic abdominal pain and was scheduled for a ERCP a week ago but missed the appointment and is now scheduled for May. Pt. denies any SOB, CP, NVD, fever , or recent injury. Pt. denies any change in the symptoms with ETOH use, marijuana use, and excedrine migraine use for pain. Review of Systems - Review of Systems Constitutional: Present: recent illness. Absent: fever, chills, weakness, fatigue, malaise EYE: Present: no symptoms reported ENT: Present: no symptoms reported Respiratory: Present: no symptoms reported. Absent: shortness of breath, cough , wheezing Cardiology: Present: no symptoms reported. Absent: chest pain, palpitations, edema Gastrointestinal/Abdominal: Present: abdominal pain. Absent: nausea, vomiting, diarrhea Genitourinary: Present: no symptoms reported. Absent: frequency, decreased urinary output Musculoskeletal: Present: no symptoms reported. Absent: back pain, joint pain Skin: Present: no symptoms reported. Absent: rash, change in hair/nails Neurological: Present: no symptoms reported. Absent: headache, dizziness/light- headedness, numbness, tingling Endocrine: Present: no symptoms reported All Other Systems: All systems neg except as marked - Patient's Past Medical History Patient History - Medical: Alcohol Abuse, Migraines, Seizures Patient History - Cardiac/Respiratory: No pertinent hx Patient History - Cancer: No Hx of Cancer Patient History - Surgical Procedures: Other Patient History - Other: None - Family History Brother Family History - Medical: , Alcohol Abuse Mother Family History - Medical: Family History - Cardiac/Respiratory: Aneurysm Father Family History - Medical: No pertinent hx - Social History Living Situations: home Abuse History: Hx of Substance Use Psych History: No pertinent hx Have you smoked in the past 12 months: No - Immunizations Immunizations Up to Date: Yes Hx Pneumococcal Vaccination: No History of Influenza Vaccine: No Physical Exam - Physical Exam General Appearance: Present: wd/wn, alert, no apparent distress Head Exam: Present: normal inspection, no evidence of injury Eye Exam: Normal inspection: bilateral, PERRL: bilateral, EOMI: bilateral Neck: Present: normal inspection, nontender. Absent: lymphadenopathy (R), lymphadenopathy (L) Respiratory: Present: no respiratory distress, normal breath sounds, no accessory muscle use, chest nontender, lungs clear Cardiovascular/Chest: Present: regular rate, rhythm, no murmur, normal peripheral pulses Gastrointestinal/Abdominal: Present: normal bowel sounds, tenderness - RUQ Back Exam: Present: normal inspection, normal range of motion, no CVA tenderness , no vertebral tenderness Extremity Exam: Present: normal inspection, non-tender, normal range of motion, no edema Neurological Exam: Present: alert, oriented, normal mood/affect, no motor/ sensory deficits Skin Exam: Present: warm/dry, jaundice ED Progress - Date and Time Seen: Date and Time: 12/26/16 20:01 Pt. left after telling nurse he was "going out for air" - Vital Signs Patient's Vital Signs:: I have reviewed the patient's vital signs. Vital Signs: Vital Signs 12/26/16 19:01 Temperature 36.8 C Pulse Rate 110 H Respiratory 17 Rate Blood Pressure 128/86 O2 Sat by Pulse 96 Oximetry - Progress/Reassessment Chief Complaint: Abdominal Pain Departure Clinical Impression: Abdominal pain Qualifiers: Abdominal location: right upper quadrant Qualified Code(s): R10.11 - Right upper quadrant pain - Departure Disposition: Against medical advice Condition: Fair
[2016-12-26 19:32] LABS: Hematocrit 39.1 % (42.0-52.0); Hemoglobin 13.9 gm/dL (13.5-18.0); Mean Cell Volume 86.7 fl (78-100); Mean Corpuscular Hemoglobin 30.8 pg (27-31); Mean Corpuscular Hgb Conc 35.5 g/dl (32-36); Mean Platelet Volume 9.5 fl (6.0-9.5); Platelet Count 271 K/mm3 (150-450); Red Blood Count 4.51 M/mm3 (4.7-6.0); Red Cell Distribution Width 16.8 % (11.5-14.0); White Blood Count 8.4 K/mm3 (4.0-10.5)
[2016-12-26 19:34] LABS: Total Cells Counted 100
[2016-12-26 19:46] LABS: Albumin * 4.1 gm/dl (3.4-5.0); Anion Gap 15.8 mmol/L (6.8-13.8); BUN/Creatinine Ratio 9.6 (9.0-21.6); Bilirubin, Total 0.1 mg/dL (0.0-1.1); Ca. Corrected For Albumin 8.5 mg/dL (8.4-10.2); Calcium * 8.9 mg/dL (7.9-10.9); Carbon Dioxide 23.4 mmol/L (24-32.6); Potassium 4.2 mmol/L (3.4-4.6); Total Protein 8.9 gm/dL (6.2-8.2)
[2016-12-26 19:47] LABS: Urine Bilirubin Negative (NEGATIVE); Urine Blood Negative /ul (NEGATIVE); Urine Ketone Negative (NEGATIVE); Urine Nitrite Negative (NEGATIVE); Urine Protein Negative (NEGATIVE); Urine Specific Gravity <=1.005 SP.GR. (1.005-1.030); Urine Urobilinogen Normal (NORMAL)
[2016-12-26 20:02] LABS: Urine Appearance Clear; Urine Bacteria TRACE; Urine Color Pale Yellow; Urine RBC None Seen /hpf (0-5); Urine WBC None Seen /hpf (0-5)
[2016-12-26 20:07] LABS: Band 2 % (0-2.0); Basophil 2 % (0-1); Eosinophil 1 % (0-3); Lymphocyte 40 % (20-51); Monocyte 6 % (0-9); Neutrophil 49 % (42-75); Neutrophil # 4.1 K/mm3 (1.3-6.0)
[2016-12-26 20:09] LABS: Hypochromia 1+; Platelet Estimate Normal (NORMAL); Target Cells 2+
[2016-12-26 20:10] LABS: Poikilocytosis 1+; Toxic Granulation Trace
== END 2016-12-26 19:35 | disposition left against medical advice (07) ==
LOC: ER 18:58
DX: R10.11 Right upper quadrant pain (principal); Z53.29 Procedure and treatment not carried out because of patient's decision for other reasons